=== PATIENT | female | born 1955 | race Caucasian/White ===

== ENCOUNTER → 2017-06-04 | Outpatient (CLI) | payer MEDICARE, MEDICAID ==
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
[2017-06-04 14:30] LABS: AMPHETAMINES/METAMPHETAMINES NEGATIVE ng/mL (<1000)
[2017-06-09 18:41] LABS: Opiates Negative (Cutoff=100)
== END ==
LOC: LAB 11:46
PROVIDERS: Nurse Anesthetist, Certified Registered
DX: Z79.899 Other long term (current) drug therapy (principal)